=== PATIENT | female | born 1945 | race Caucasian/White ===

== ENCOUNTER 2016-12-10 06:57 | Day surgery (SDC) | payer MEDICARE, OTHER ==
[2016-12-07 13:05] LABS: WBC (NOT ORDERED) (RFLEX) 0 (0-5)
[2016-12-07 13:46] LABS: HEMOGLOBIN 14.3 g/dL (12.0-16.0)
[2016-12-07 13:49] LABS: HEMATOCRIT 43.1 % (36.0-48.0)
[2016-12-07 13:55] LABS: CALCIUM, SERUM 9.2 MG/DL (8.5-10.4); CHLORIDE, SERUM 106 MMOL/L (96-112); CO2 (CARBON DIOXIDE) 27 MMOL/L (24-34); CREATININE 0.74 MG/DL (0.55-1.02); GFR AFRICAN AMERICAN 94 ML/MIN (>=60); GFR NON AFRICAN AMERICAN 82 ML/MIN (>=60); GLUCOSE, SERUM 107 MG/DL (60-99); POTASSIUM, SERUM 4.3 MMOL/L (3.5-5.3); SODIUM, SERUM 142 MMOL/L (135-148)
[2016-12-07 13:56] LABS: BUN (BLOOD UREA NITROGEN) 15 MG/DL (6-23)
[2016-12-07 14:12] LABS: ASCORBIC ACID (UR NOT ORDER) NEG (NEG); BILIRUBIN, URINE NEGATIVE (NEG); KETONE, URINE NEGATIVE (NEG); LEUKOCYTE ESTERASE(NOT OR NEG (NEG)
--- NOTE | ~2016-12-10 | OP ---
Record Of Operation [facility] [address] [place]. [address] NAME: NORA CAMPBELL : 45 STATUS : REG [facility]#: [id number] AGE: 71 ADM/REG DATE : 12/10/16 MR#: [id number] REPORT SERV DATE: 12/10/16 DICTATED BY: DOMINGO GARCIA JR. DATE: 12/10/16 REPORT STATUS : Draft TRANSCRIBED BY: MODL DATE: 12/10/16 DATE OF PROCEDURE: 12/10/2016 SURGEON: Domingo Garcia M.D. PREOPERATIVE DIAGNOSIS: Nonfunctional InterStim. POSTOPERATIVE DIAGNOSIS: Nonfunctional InterStim. PROCEDURE PERFORMED: Removal of InterStim device. COMPLICATIONS: None. CONSULTATIONS: None. ANESTHESIA: General with an endotracheal tube. SPECIMENS: InterStim device. DRAINS: None. ESTIMATED BLOOD LOSS: None. INDICATION: Mrs. Campbell is a 71-year-old female who had an InterStim placed for overactive bladder and incontinence several years ago. She has worked hard to try and have success with the InterStim; however, she has just not been happy with the results, and she comes today to have the InterStim removed. PROCEDURE IN DETAIL: After the patient was identified and proper informed consent was obtained, she was taken to the operating room. General anesthesia was performed without complication using an endotracheal tube. She was then prepped and draped in the normal sterile fashion in the prone position. I started by making an incision overlying her previous scar from the battery placement. The battery was delivered from this incision and then a second incision was made overlying the sacrum at her prior lead placement site. The lead was identified subcutaneously and light traction was placed on the lead and was brought up intact from the S3 foramen. I was careful not use any cautery around the device itself so that we would not to stimulate her sacral plexus. Once the device had been removed, I cut the lead, the distal part of the lead off so that I could bring the lead through the subcutaneous tissues and out through the battery incision site. Once the device had been removed, I irrigated both wounds copiously with sterile saline and closed using 3-0 Vicryl suture in the subcutaneous tissue in a running fashion and a 4-0 Monocryl in the skin of each incision. Dermabond, Telfa, and Tegaderm were used for dressing. The patient was awakened in the operating room and transferred to the postanesthesia care unit in stable condition. I will see her back in the office in approximately six weeks for followup. Record Of [facility]. [address] NAME: NORA CAMPBELL : 45 STATUS : REG [facility] PAT#: [id number] AGE: 71 ADM/REG DATE : 12/10/16 MR#: [id number] REPORT SERV DATE: 12/10/16 DICTATED BY: DOMINGO GARCIA JR. DATE: 12/10/16 REPORT STATUS : Draft TRANSCRIBED BY: DIANA DATE: 12/10/16 NEMESIO/DIANA Domingo Garcia Jr., M.D. / [id number] CC: Monica Beasley Jr., M.D.
[~2016-12-10 06:57] MED LIST: ADVAIR INH; ADVAIR250 INH; ALLEGRA180 PO; AMB10 PO; AMIT25 PO; ASAB PO; CALCIUM/MAG/ZINC PO; CALTRA600D PO; CELEXA20 PO; COREG6 PO; ESTER C PO; MULTIVITAMI1 PO; MYRBETRIQ50 MG PO; NASONEX NAS; NIACOR500 MG PO; NORV5 PO; PROTONIX PO; PROVHFA INH; REG PO; STERAPDS12; ZOMIG ZMT5 MG PO; ZOMIG5 MG PO; [UNRECOGNIZED DRUG - OTHER] SQ
== END 2016-12-10 18:16 | disposition home or self-care (01) ==
LOC: SDC 06:57
PROVIDERS: Urology
PROC: 01PY3MZ Removal of Neurostimulator Lead from Peripheral Nerve, Percutaneous Approach (ICD-10-PCS; principal; 2016-12-10 09:00)
DX: T85.199A Other mechanical complication of other implanted electronic stimulator of nervous system, initial encounter (principal); I10 Essential (primary) hypertension; E78.5 Hyperlipidemia, unspecified; J44.9 Chronic obstructive pulmonary disease, unspecified; E78.00 Pure hypercholesterolemia, unspecified; J45.909 Unspecified asthma, uncomplicated; M19.90 Unspecified osteoarthritis, unspecified site; G43.909 Migraine, unspecified, not intractable, without status migrainosus; K21.9 Gastro-esophageal reflux disease without esophagitis; F32.9 Major depressive disorder, single episode, unspecified; Z88.0 Allergy status to penicillin; Z88.1 Allergy status to other antibiotic agents; Z91.013 Allergy to seafood; Z88.5 Allergy status to narcotic agent; Z88.8 Allergy status to other drugs, medicaments and biological substances; Z96.1 Presence of intraocular lens; Z90.89 Acquired absence of other organs; Z90.49 Acquired absence of other specified parts of digestive tract; Z90.710 Acquired absence of both cervix and uterus; Z98.890 Other specified postprocedural states
CPT/HCPCS: 80048; 81001; 85014; 85018; 88300; 93005; 94640; J2405; J2550; J2710; J3010; J3370